=== PATIENT | female | born 1970 | race Caucasian/White ===

== ENCOUNTER → 2017-09-13 | Outpatient (CLI) | payer BC ==
[~2017-09-13] MED LIST: ATIVAN 0.50.5 MG/TAB PO; BENADRYL50 MG PO; DESYREL 100MG100 MG PO; FLEXERIL10 MG PO; FLEXERIL5 MG PO; KLONOPIN 0.5MG0.5 MG PO; LAMICTAL 100MG100 MG PO; MOTRIN 600600 MG/TAB PO; MOTRIN800 MG PO; MULTIPLE VITAMI1 CAP PO; NO HOME MEDICATIONS; NORCO 325 MG-51 TAB PO; ORSYTHIA 0.02 M1 TAB PO; PERCOCET 325 MG1 TA2 PO; PRENATAL1 TA1 PO; RITALIN10 MG PO; SENOKOT S 50 MG1 TAB PO; TRAZADONE HYDR100 MG PO; ULTRAM 50MG TAB50 MG PO; VICODIN 5/5001 UDTAB PO; ZANTAC 150MG T150 MG PO
== END ==
LOC: COL.RAD 07:39
DX: M54.81 Occipital neuralgia (principal); Z98.1 Arthrodesis status

== ENCOUNTER → 2020-02-06 | Outpatient (CLI) | payer BC | LOC: COL.RAD 08:15 | DX: M51.16 Intervertebral disc disorders with radiculopathy, lumbar region (principal); M47.26 Other spondylosis with radiculopathy, lumbar region; M47.27 Other spondylosis with radiculopathy, lumbosacral region ==

== ENCOUNTER → 2020-03-03 | Outpatient (CLI) | payer BC | LOC: MHCPAIN 10:33 | DX: M47.816 Spondylosis without myelopathy or radiculopathy, lumbar region (principal); M54.5 Low back pain; M53.3 Sacrococcygeal disorders, not elsewhere classified; G89.29 Other chronic pain | CPT/HCPCS: G0463 ==

== ENCOUNTER → 2020-03-05 | Outpatient (CLI) | payer BC | LOC: MHCPAIN 07:45 | DX: M47.817 Spondylosis without myelopathy or radiculopathy, lumbosacral region (principal); M54.5 Low back pain ==

== ENCOUNTER → 2020-03-09 | Outpatient (CLI) | payer BC | LOC: MHCPAIN 10:31 | DX: M47.817 Spondylosis without myelopathy or radiculopathy, lumbosacral region (principal); M53.3 Sacrococcygeal disorders, not elsewhere classified; M54.5 Low back pain; G89.29 Other chronic pain | CPT/HCPCS: G0463 ==

== ENCOUNTER → 2020-03-19 | Outpatient (CLI) | payer BC | LOC: MHCPAIN 08:35 | DX: M47.817 Spondylosis without myelopathy or radiculopathy, lumbosacral region (principal); M54.5 Low back pain ==

== ENCOUNTER → 2020-04-20 | Outpatient (CLI) | payer BC | LOC: MHCPAIN 11:18 | DX: M54.5 Low back pain (principal); M47.817 Spondylosis without myelopathy or radiculopathy, lumbosacral region | CPT/HCPCS: G0463; J1100; J2250; J3010 ==

== ENCOUNTER 2020-06-04 09:45 | Outpatient (RCR) | payer BC | END 2020-06-10 | disposition still patient (30) | LOC: WSPT | DX: M47.896 Other spondylosis, lumbar region (principal) ==

== ENCOUNTER 2020-06-18 12:03 | Outpatient (RCR) | payer BC | END 2020-06-19 09:27 | disposition home or self-care (01) | LOC: WSPT 12:03 | DX: M47.816 Spondylosis without myelopathy or radiculopathy, lumbar region (principal) ==